=== PATIENT | female | born 1950 | race Caucasian/White ===

== ENCOUNTER → 2024-08-03 | Outpatient (CLI) | payer MEDICARE, SELFPAY ==
--- NOTE | 2024-08-03 16:47 | XR_ITS ---
Examination: Ribs, bilateral, with PA chest, 5 views Technique: Chest PA, RIBS AP, RPO, LPO, AP coned lower ribs 5 views Exam date and time: August 03, 2024 1658 hours INDICATIONS: Patient fell today with injury to bilateral chest, bilateral rib pain Findings: Normal heart size No pneumothorax Prominent osteopenia No acute rib fractures IMPRESSION: No pneumothorax pulmonary contusion or hemothorax No acute rib fractures
== END | disposition home or self-care (01) ==
PROVIDERS: PCP Nurse Practitioner; Referring Provider Nurse Practitioner; Visit Provider Nurse Practitioner
DX: M85.88 Other specified disorders of bone density and structure, other site (principal)
CPT/HCPCS: 71111